=== PATIENT | female | born 1990 | race Caucasian/White ===

== ENCOUNTER 2022-06-13 18:24 | Observation (INO) | payer BC ==
[2022-06-13] MEDS ORDERED: SODIUM CHLORIDE 0.9% 1,000 ML IV STA (19:40)
--- NOTE | 2022-06-13 19:40 | ED ---
General Adult HPI - General Stated complaint: Racing Heart Beat Source: patient, family, RN notes reviewed, old records reviewed - History of Present Illness Initial comments: This is a well appearing 32 year old female that presents ambulatory with compl aints of chest pain while making dinner arouind 1730 tonight. States felt like she was going to pass out. Checked her heart rate and was 180. States has been feeling palpitations and now both arms are tingling. Chest pain comes and goes 9/10 and can't describe the pain. No medical history. Nonsmoker. Patient denies any medical history. No medicines on a daily basis. She did see Dr. Lubin for similar discomfort in the past approximately 10 years ago and had an EKG which he told her was normal. She states that she has not seen Dr. Lubin since. She does not have a primary care doctor. -: hour(s) Location: chest Quality: constant Consistency: constant Improves with: none Associated Symptoms: other (palpitations, bilateral arm numbness and near syncope) - Related Data Home Medications Medication Instructions Recorded Confirmed No Known Home Medications 06/13/22 06/13/22 Allergies Allergy/AdvReac Type Severity Reaction Status Date / Time No Known Allergies Allergy Verified 06/13/22 22:33 Review of Systems ROS Statement: Those systems with pertinent positive or pertinent negative responses have been documented in the HPI. ROS Other: All systems not noted in ROS Statement are negative. General Exam General appearance: alert, in no apparent distress Head exam: Present: atraumatic, normocephalic Eye exam: Present: normal appearance. Absent: scleral icterus, conjunctival injection, periorbital swelling, periorbital tenderness ENT exam: Present: mucous membranes moist Respiratory exam: Present: normal lung sounds bilaterally. Absent: respiratory distress, accessory muscle use Cardiovascular Exam: Present: tachycardia Extremities exam: Present: normal capillary refill. Absent: pedal edema Neurological exam: Present: alert, oriented X3, normal gait Psychiatric exam: Present: normal affect, normal mood Skin exam: Present: warm, dry, normal color. Absent: cyanosis, diaphoretic, petechiae, pallor Course Vital Signs 06/13/22 06/13/22 06/13/22 19:34 19:43 19:45 Temperature 98.3 F Pulse Rate 109 H 97 101 H Respiratory 20 Rate Blood Pressure 151/85 O2 Sat by Pulse 99 98 100 Oximetry 06/13/22 06/13/22 06/13/22 20:00 20:08 20:15 Temperature Pulse Rate 99 108 H 91 Respiratory 18 Rate Blood Pressure 133/90 132/90 133/90 O2 Sat by Pulse 99 99 100 Oximetry 06/13/22 06/13/22 06/13/22 20:30 20:45 21:00 Temperature Pulse Rate 99 100 101 H Respiratory Rate Blood Pressure 133/90 133/90 133/90 O2 Sat by Pulse 98 92 L 99 Oximetry 06/13/22 06/13/22 06/13/22 21:15 22:45 22:49 Temperature Pulse Rate 99 108 H 112 H Respiratory 18 Rate Blood Pressure 133/90 122/73 132/77 O2 Sat by Pulse 99 97 98 Oximetry 06/13/22 06/14/22 06/14/22 23:00 00:00 01:00 Temperature Pulse Rate 100 90 85 Respiratory 18 18 Rate Blood Pressure 132/77 113/64 117/82 O2 Sat by Pulse 96 97 Oximetry 06/14/22 06/14/22 02:00 03:00 Temperature Pulse Rate 77 92 Respiratory Rate Blood Pressure 117/66 124/61 O2 Sat by Pulse 98 96 Oximetry EKG Findings - EKG Comments: EKG Findings:: Repeat EKG was performed showing ventricular rate of 103, NH interval 0.96, QRS 0.85, QTC 0.410, normal axis - EKG Results: EKG: sinus rhythm EKG shows: tachycardia (Sinus tach 111, NH interval 0.130, QRS 0.90, QTC 0.384, normal axis, no old EKG to compare) Medical Decision Making - Medical Decision Making Patient was given aspirin and 2 L of IV fluids. Remained tachycardic while in the emergency room. Hemodynamically stable. CBC and electrolytes are unremarkable. Troponin is negative. TSH and free T4 within normal limits. D-dimer negative. EKG shows sinus rhythm, no concerning abnormality. Chest x-ray interpreted by me shows no evidence of focal consolidation. Radiologist impression no acute cardiopulmonary disease or process. Due to patient's lack of primary care, chest pain, near-syncope and persistent tachycardia she will be admitted to observation unit with cardiology consult. She is agreeable to this plan of care. Case discussed with Dr. Coronel Was pt. sent in by a medical professional or institution (Dr., PA, SERVICE ADMINISTRATOR, urgent care, hospital, or penitentiary...) When possible be specific @ -No Did you speak to anyone other than the patient for history (EMS, parent, family, police, friend...)? What history was obtained from this source @ -No Did you review nursing and triage notes (agree or disagree)? Why? @ -I reviewed and agree with nursing and triage notes Were old charts reviewed (outside hosp., previous admission, EMS record, old EKG, old radiological studies, urgent care reports/EKG's, penitentiary records)? Report findings @ -No old charts were reviewed Differential Diagnosis (chest pain, altered mental status, abdominal pain women, abdominal pain men, vaginal bleeding, weakness, fever, dyspnea, syncope, headache, dizziness, GI bleed, back pain, seizure, CVA, palpatations, mental health, musculoskeletal)? @ -Differential Chest Pain: Stable Angina, Unstable Angina, STEMI, NSTEMI Aortic Dissection, Pneumothorax, Musculoskeletal, Esophageal Spasm GERD, Cholecystitis, Pancreatitis, Zoster, this is not meant to be an all-inclusive list. EKG interpreted by me (3pts min.). @ -As above X-rays interpreted by me (1pt min.). @ - above CT interpreted by me (1pt min.). @ -None done U/S interpreted by me (1pt. min.). @ -None done What testing was considered but not performed or refused? (CT, X-rays, U/S, labs)? Why? @ -None What meds were considered but not given or refused? Why? @ -None Did you discuss the management of the patient with other professionals (professionals i.e. , PA, SERVICE ADMINISTRATOR, lab, RT, psych nurse, social and human services assistant, pulmonary physician, teacher, head correction officer, case operator)? Give summary @ -No Was smoking cessation discussed for >3mins.? @ -No Was critical care preformed (if so, how long)? @ -No Were there social determinants of health that impacted care today? How? (Homelessness, low income, unemployed, alcoholism, drug addiction, transportation, low edu. Level, literacy, decrease access to med. care, longterm, rehab)? @ -No primary care Was there de-escalation of care discussed even if they declined (Discuss DNR or withdrawal of care, Hospice)? DNR status @ -No What co-morbidities impacted this encounter? (DM, HTN, Smoking, COPD, CAD, Cancer, CVA, ARF, Chemo, Hep., AIDS, mental health diagnosis, sleep apnea, morbid obesity)? @ -None Was patient admitted / discharged? Hospital course, mention meds given and r oute, prescriptions, significant lab abnormalities, going to OR and other pertinent info. @ -Admitted Undiagnosed new problem with uncertain prognosis? @ -No Drug Therapy requiring intensive monitoring for toxicity (Heparin, Nitro, Insulin, Cardizem)? @ -No Were any procedures done? @ -No Diagnosis/symptom? @ -Chest pain, persistent tachycardia, near syncope Acute, or Chronic, or Acute on Chronic? @ -Acute Uncomplicated (without systemic symptoms) or Complicated (systemic symptoms)? @ -Complicated Side effects of treatment? @ -No Exacerbation, Progression, or Severe Exacerbation? @ -No Poses a threat to life or bodily function? How? (Chest pain, USA, DC, pneumonia, PE, COPD, DKA, ARF, appy, cholecystitis, CVA, Diverticulitis, Homicidal, Suicidal, threat to staff... and all critical care pts) @ -No - Lab Data Result diagrams: 06/13/22 19:55 06/13/22 19:55 Lab Results 06/13/22 06/13/22 06/13/22 Range/Units 19:55 19:55 19:55 WBC 9.4 (3.8-10.6) k/uL RBC 4.59 (3.80-5.40) m/uL Hgb 14.2 (11.4-16.0) gm/dL Hct 42.1 (34.0-46.0) % MCV 91.6 (80.0-100.0) fL MCH 31.0 (25.0-35.0) pg MCHC 33.8 (31.0-37.0) g/dL RDW 13.1 (11.5-15.5) % Plt Count 235 (150-450) k/uL MPV 9.3 Neutrophils % 69 % Lymphocytes % 18 % Monocytes % 8 % Eosinophils % 2 % Basophils % 1 % Neutrophils # 6.5 (1.3-7.7) k/uL Lymphocytes # 1.7 (1.0-4.8) k/uL Monocytes # 0.7 (0-1.0) k/uL Eosinophils # 0.2 (0-0.7) k/uL Basophils # 0.1 (0-0.2) k/uL PT 10.6 (9.0-12.0) sec INR 1.0 (<1.2) APTT 23.4 (22.0-30.0) sec D-Dimer <0.17 (<0.60) mg/L FEU Sodium 136 L (137-145) mmol/L Potassium 3.6 (3.5-5.1) mmol/L Chloride 101 (98-107) mmol/L Carbon Dioxide 28 (22-30) mmol/L Anion Gap 7 mmol/L BUN 11 (7-17) mg/dL Creatinine 0.82 (0.52-1.04) mg/dL Est GFR (CKD-EPI)AfAm >90 (>60 ml/min/1.73 sqM) Est GFR (CKD-EPI)NonAf >90 (>60 ml/min/1.73 sqM) Glucose 128 H (74-99) mg/dL Calcium 9.0 (8.4-10.2) mg/dL Magnesium 1.9 (1.6-2.3) mg/dL Total Bilirubin 0.3 (0.2-1.3) mg/dL AST 23 (14-36) U/L ALT 20 (4-34) U/L Alkaline Phosphatase 42 (38-126) U/L Troponin I (0.000-0.034) ng/mL Total Protein 7.3 (6.3-8.2) g/dL Albumin 4.5 (3.5-5.0) g/dL TSH (0.465-4.680) mIU/L Free T4 (0.78-2.19) ng/dL 06/13/22 06/13/22 Range/Units 19:55 19:55 WBC (3.8-10.6) k/uL RBC (3.80-5.40) m/uL Hgb (11.4-16.0) gm/dL Hct (34.0-46.0) % MCV (80.0-100.0) fL MCH (25.0-35.0) pg MCHC (31.0-37.0) g/dL RDW (11.5-15.5) % Plt Count (150-450) k/uL MPV Neutrophils % % Lymphocytes % % Monocytes % % Eosinophils % % Basophils % % Neutrophils # (1.3-7.7) k/uL Lymphocytes # (1.0-4.8) k/uL Monocytes # (0-1.0) k/uL Eosinophils # (0-0.7) k/uL Basophils # (0-0.2) k/uL PT (9.0-12.0) sec INR (<1.2) APTT (22.0-30.0) sec D-Dimer (<0.60) mg/L FEU Sodium (137-145) mmol/L Potassium (3.5-5.1) mmol/L Chloride (98-107) mmol/L Carbon Dioxide (22-30) mmol/L Anion Gap mmol/L BUN (7-17) mg/dL Creatinine (0.52-1.04) mg/dL Est GFR (CKD-EPI)AfAm (>60 ml/min/1.73 sqM) Est GFR (CKD-EPI)NonAf (>60 ml/min/1.73 sqM) Glucose (74-99) mg/dL Calcium (8.4-10.2) mg/dL Magnesium (1.6-2.3) mg/dL Total Bilirubin (0.2-1.3) mg/dL AST (14-36) U/L ALT (4-34) U/L Alkaline Phosphatase (38-126) U/L Troponin I <0.012 (0.000-0.034) ng/mL Total Protein (6.3-8.2) g/dL Albumin (3.5-5.0) g/dL TSH 3.210 (0.465-4.680) mIU/L Free T4 1.15 (0.78-2.19) ng/dL Disposition Clinical Impression: Palpitations, Tachycardia, Near syncope, Chest pain Disposition: ADMITTED IP TO THIS [facility] Condition: Good Decision Date: 06/13/22 Decision Time: 23:04
[2022-06-13 20:20] LABS: Basophils # (A) 0.1 k/uL (0-0.2); Basophils % (A) 1 %; Eosinophils # (A) 0.2 k/uL (0-0.7); Eosinophils % (A) 2 %; HCT 42.1 % (34.0-46.0); HGB 14.2 gm/dL (11.4-16.0); Lymphocytes # (A) 1.7 k/uL (1.0-4.8); Lymphocytes % (A) 18 %; MCHC 33.8 g/dL (31.0-37.0); MCV 91.6 fL (80.0-100.0); Mean Platelet Volume 9.3; Monocytes # (A) 0.7 k/uL (0-1.0); Monocytes % (A) 8 %; Neutrophils # (A) 6.5 k/uL (1.3-7.7); Neutrophils % (A) 69 %; Platelet Count 235 k/uL (150-450); RBC 4.59 m/uL (3.80-5.40); RDW 13.1 % (11.5-15.5); WBC 9.4 k/uL (3.8-10.6)
[2022-06-13 20:31] LABS: ALT 20 U/L (4-34); AST 23 U/L (14-36); African American GFR (CKD) >90 (>60 ml/min/1.73 sqM); Albumin 4.5 g/dL (3.5-5.0); Alkaline Phosphatase 42 U/L (38-126); Anion Gap 7 mmol/L; Blood Urea Nitrogen 11 mg/dL (7-17); Carbon Dioxide 28 mmol/L (22-30); Chloride 101 mmol/L (98-107); Glucose 128 mg/dL (74-99); Magnesium 1.9 mg/dL (1.6-2.3); Non-African American GFR(CKD) >90 (>60 ml/min/1.73 sqM); Potassium 3.6 mmol/L (3.5-5.1); Sodium 136 mmol/L (137-145); Total Bilirubin 0.3 mg/dL (0.2-1.3); Total Protein 7.3 g/dL (6.3-8.2)
[2022-06-13 20:34] LABS: Partial Thromboplastin Time 23.4 sec (22.0-30.0); Prothrombin Time 10.6 sec (9.0-12.0)
--- NOTE | 2022-06-13 20:38 | XR ---
EXAMINATION TYPE: XR chest 2V DATE OF EXAM: 06/13/2022 8:23 PM COMPARISON: None TECHNIQUE: XR chest 2V Frontal and lateral views of the chest. CLINICAL INDICATION:Female, 32 years old with history of Chest Pain; FINDINGS: Lungs/Pleura: There is no evidence of pleural effusion, focal consolidation, or pneumothorax. Pulmonary vascularity: Unremarkable. Heart/mediastinum: Cardiomediastinal silhouette is unremarkable. Musculoskeletal: No acute osseous pathology. IMPRESSION: No acute cardiopulmonary disease/process.
[2022-06-13] MEDS ORDERED: SODIUM CHLORIDE 0.9% 1,000 ML IV ONE (21:54)
[2022-06-13] MEDS ORDERED: ASPIRIN 81 MG PO STA (22:58)
[2022-06-13] MEDS ORDERED: IBUPROFEN 400 MG TAB PO PRN (23:02)
[2022-06-13] MEDS ORDERED: NALOXONE 0.4 MG/ML 1 ML VIAL IV PRN (23:02)
[2022-06-13] MEDS ORDERED: ACETAMINOPHEN TAB 325 MG TAB PO PRN (23:02)
[2022-06-14 00:28] LABS: T4, Free (Free Thyroxine) 1.15 ng/dL (0.78-2.19)
--- NOTE | 2022-06-14 08:03 | P.CRDCN ---
History of Present Illness Consult date: 06/14/22 Chief complaint: Chest pain History of present illness: The patient is a pleasant 32-year-old female patient was no significant past medical history and no history of smoking presented to the emergency room complaining of chest discomfort and palpitation beach she was in her usual state of health yesterday evening she was making dinner and she was trying to reach into sensing her kitchen suddenly she started experiencing discomfort in the est. She described the discomfort as a sharp kind of discomfort in the middle of the chest with no radiation to the arms or neck or shoulders or back and it was associated with shortness of breath as well as it was associated with palpitations/heart racing. She checked her pulse and and her pulse was elevated about 180 bpm according to her and her . She felt dizzy and lightheaded and she felt that she was about to lose her consciousness but she did not have syncope or loss of consciousness. She decided to come to the emergency department where she underwent a workup including EKG showing sinus rhythm with sinus tachycardia and diffuse nonspecific ST and T wave abnormalities. Also she underwent troponin with one set only and that came in to be unremarkable. The chest x-ray did not show any acute abnormalities. The patient does not have any history of diabetes or hypertension or dyslipidemia and she does not smoke but apparently she was drinking alcohol with a bit more than normal where she stated that she drinks about 5 drinks of vodka the night before. Currently she is chest pain-free but she still have mild palpitations/heart racing. Her resting heart rate continues to be around 110 beats per minutes. TSH and free T4 checked and came in to be unremarkable. On examination she does have regular rhythm with mild tachycardia with a systolic murmur and clear breathing sounds bilaterally and no carotid bruit or lower extent is edema noted Assessment Atypical chest discomfort Sinus tachycardia Heart racing Plan Rule out acute coronary event. We will follow-up on the serial cardiac enzymes Rule out pulmonary embolism which is quite unlikely but just giving the tachycardia going to obtain d-dimer Check alcohol level. The tachycardia could be related to alcohol withdrawal as well Obtain an echocardiogram was Doppler Further recommendation to follow Past Medical History Past Medical History: No Reported History History of Any Multi-Drug Resistant Organisms: None Reported Past Surgical History: No Surgical Hx Reported Past Psychological History: No Psychological Hx Reported Smoking Status: Never smoker Past Alcohol Use History: Occasional Past Drug Use History: None Reported Medications and Allergies Home Medications Medication Instructions Recorded Confirmed Type No Known Home Medications 06/13/22 06/13/22 History Allergies Allergy/AdvReac Type Severity Reaction Status Date / Time No Known Allergies Allergy Verified 06/13/22 22:33 Physical Exam Vitals: Vital Signs Temp Pulse Resp BP Pulse Ox 06/14/22 05:00 77 110/64 97 06/14/22 04:00 66 123/73 97 06/14/22 03:00 92 124/61 96 06/14/22 02:00 77 117/66 98 06/14/22 01:00 85 18 117/82 06/14/22 00:00 90 18 113/64 97 06/13/22 23:00 100 132/77 96 06/13/22 22:49 112 H 132/77 98 06/13/22 22:45 108 H 18 122/73 97 06/13/22 21:15 99 133/90 99 06/13/22 21:00 101 H 133/90 99 06/13/22 20:45 100 133/90 92 L 06/13/22 20:30 99 133/90 98 06/13/22 20:15 91 133/90 100 06/13/22 20:08 108 H 18 132/90 99 06/13/22 20:00 99 133/90 99 06/13/22 19:45 101 H 100 06/13/22 19:43 97 98 06/13/22 19:34 98.3 F 109 H 20 151/85 99 Intake and Output 06/13/22 06/14/22 06/14/22 22:59 06:59 14:59 Other: Weight 58.967 kg Results 06/13/22 19:55 06/13/22 19:55 Cardiac Enzymes 06/13/22 06/13/22 Range/Units 19:55 19:55 AST 23 (14-36) U/L Troponin I <0.012 (0.000-0.034) ng/mL Coagulation 06/13/22 Range/Units 19:55 PT 10.6 (9.0-12.0) sec APTT 23.4 (22.0-30.0) sec CBC 06/13/22 Range/Units 19:55 WBC 9.4 (3.8-10.6) k/uL RBC 4.59 (3.80-5.40) m/uL Hgb 14.2 (11.4-16.0) gm/dL Hct 42.1 (34.0-46.0) % Plt Count 235 (150-450) k/uL Comprehensive Metabolic Panel 06/13/22 Range/Units 19:55 Sodium 136 L (137-145) mmol/L Potassium 3.6 (3.5-5.1) mmol/L Chloride 101 (98-107) mmol/L Carbon Dioxide 28 (22-30) mmol/L BUN 11 (7-17) mg/dL Creatinine 0.82 (0.52-1.04) mg/dL Glucose 128 H (74-99) mg/dL Calcium 9.0 (8.4-10.2) mg/dL AST 23 (14-36) U/L ALT 20 (4-34) U/L Alkaline Phosphatase 42 (38-126) U/L Total Protein 7.3 (6.3-8.2) g/dL Albumin 4.5 (3.5-5.0) g/dL Current Medications Generic Name Dose Route Start Last Admin Trade Name Freq PRN Reason Stop Dose Admin Acetaminophen 650 mg 06/13/22 23:02 Acetaminophen Tab 325 Mg Tab PO Q6HR PRN Mild Pain or Fever > 100.5 Ibuprofen 400 mg 06/13/22 23:02 Ibuprofen 400 Mg Tab PO Q6HR PRN Mild Pain or Fever > 100.5 Naloxone HCl 0.2 mg 06/13/22 23:02 Naloxone 0.4 Mg/Ml 1 Ml Vial IV Q2M PRN Opioid Reversal Intake and Output 06/13/22 06/14/22 06/14/22 22:59 06:59 14:59 Other: Weight 58.967 kg 06/13/22 19:55 06/13/22 19:55
[2022-06-14 08:20] VITALS: RESP 16
--- NOTE | 2022-06-14 10:22 | CA ---
Transthoracic Echo Report Name: Francy Linder Age: 32 Gender: F : 1990 Exam Date: 06/14/2022 08:16 Exam Location: [place] [facility] Ht (in): 62 Wt (lb): 133 Ordering Physician: Francisco Coffey Attending/Referring Phys: Computer Systems Integrator Lana Winkler RDCS Procedure CPT: Indications: Persistent tachycardia, palpitations, near syncope Cardiac Hx: Technical Quality: Excellent Contrast 1: Total Dose (mL): Contrast 2: Total Dose (mL): MEASUREMENTS (Male / Female) Normal Values 2D ECHO LV Diastolic Diameter PLAX 4.2 cm 4.2 - 5.9 / 3.9 - 5.3 cm LV Systolic Diameter PLAX 2.9 cm IVS Diastolic Thickness 0.8 cm 0.6 - 1.0 / 0.6 - 0.9 cm LVPW Diastolic Thickness 0.8 cm 0.6 - 1.0 / 0.6 - 0.9 cm LV Relative Wall Thickness 0.4 RV Internal Dim ED PLAX 3.1 cm LA Systolic Diameter LX 3.3 cm 3.0 - 4.0 / 2.7 - 3.8 cm LV Diastolic Volume MOD BP 86.1 cm??? 67 - 155 / 56 - 104 cm??? LV Systolic Volume MOD BP 25.8 cm??? 22 - 58 / 19 - 49 cm??? LV Ejection Fraction MOD BP 70.0 % >= 55 % LV Diastolic Volume MOD 4C 84.3 cm??? LV Systolic Volume MOD 4C 24.7 cm??? LV Ejection Fraction MOD 4C 70.7 % LV Diastolic Length 4C 7.4 cm LV Systolic Length 4C 5.5 cm LV Diastolic Volume MOD 2C 77.0 cm??? LV Systolic Volume MOD 2C 27.0 cm??? LV Ejection Fraction MOD 2C 64.9 % LV Diastolic Length 2C 6.4 cm LV Systolic Length 2C 5.4 cm LA Volume 41.8 cm??? 18 - 58 / 22 - 52 cm??? M-MODE Aortic Root Diameter MM 2.3 cm MV E Point Septal Separation 0.1 cm AV Cusp Separation MM 1.7 cm DOPPLER AV Peak Velocity 169.8 cm/s AV Peak Gradient 11.5 mmHg MV Area PHT 4.4 cm??? Mitral E Point Velocity 110.4 cm/s Mitral A Point Velocity 84.0 cm/s Mitral E to A Ratio 1.3 MV Deceleration Time 173.1 ms MV E' Velocity 13.3 cm/s Mitral E to MV E' Ratio 8.3 TR Peak Velocity 232.8 cm/s TR Peak Gradient 21.7 mmHg Right Ventricular Systolic Press 26.7 mmHg FINDINGS Left Ventricle Left ventricular ejection fraction is estimated at 60-65 %. Normal Left ventricular size, wall thickness, systolic function with no obvious regional wall motion abnormalities. Normal Left ventricular diastolic filling pattern. Right Ventricle Normal right ventricular size and function. Right ventricular systolic pressure within normal limits. Right Atrium Normal right atrial size. Left Atrium Normal left atrial size. Mitral Valve Structurally normal mitral valve. Trace to mild mitral regurgitation. Aortic Valve Trileaflet aortic valve. No aortic valve stenosis or regurgitation. Tricuspid Valve Structurally normal tricuspid valve. Trace to mild tricuspid regurgitation. Pulmonic Valve Structurally normal pulmonic valve. Mild pulmonic regurgitation. Pericardium Normal pericardium. No pericardial effusion. Aorta Normal size aortic root and proximal ascending aorta. CONCLUSIONS Normal biventricular systolic function Normal intracardiac valves No pericardial effusion Previewed by: Dr. Misael Delgado MD (Electronically Signed) Final Date: 14 June 2022 10:20
--- NOTE | 2022-06-14 12:49 | CA ---
Exercise Stress Test Report Name: Francy Linder Exam Date: 06/14/2022 12:01 Exam Location: [place] Stress Ht (in): 62 Wt (lb): 130 BSA: 1.59 Ordering Phys: Misael Delgado MD Referring Phys: MISAEL DELGADO,, Technologist: Lana Winkler RDCS Age: 32 Gender: F : 1990 Procedure CPT: Indications: palpitations ICD-10 Codes: Patient History: cp, boby, palpitations Medications: Meds past 24 hrs: Pretest Chest Pain: STRESS TEST Cruz Protocol Exercise Duration (min:sec): 08:[address] Depressions (mm): Angina Score: Vaz Score: Resting HR (bpm): 120 Peak HR (bpm): 182 Resting BP (mmHg): 139 / 88 Peak BP (mmHg): 185 / 82 MPHR: 186 Target HR: 158 % MPHR: 98 METS: 10.3 Total Dose: Peak Dose: Atropine: Double Product: 99424 BP Response: Stress Termination: Dyspnea Stress Symptoms: Stress Summary: ECG ANALYSIS Resting ECG: Stress ECG: CONCLUSIONS Excellent exercise tolerance Normal EKG in response to exercise Dr. Misael Delgado MD (Electronically Signed) Final Date: 14 June 2022 12:48
[2022-06-14 16:19] VITALS: BP 110/64; PULSE 85; TEMP 98.3
== END 2022-06-14 16:45 | disposition home or self-care (01) ==
LOC: EC 18:24 → 6NMEDSUR 23:04
PROVIDERS: ADMIT Hospitalist; ATTEND Hospitalist
DX: R07.89 Other chest pain (principal); R00.2 Palpitations; R06.02 Shortness of breath; R42 Dizziness and giddiness; R00.0 Tachycardia, unspecified
CPT/HCPCS: 99285; 36415; 94760; 93005; 93017; 93306; 85379 ×2; 84439; 80053; 84443; 83735; 84484 ×2; 85025; 85610; 85730; 71046; G0378

== ENCOUNTER → 2022-12-10 | Outpatient (CLI) | payer BC ==
[2022-12-10 13:38] LABS: Basophils % (A) 0 %; Eosinophils # (A) 0.2 k/uL (0-0.7); Eosinophils % (A) 3 %; HCT 41.4 % (34.0-46.0); HGB 13.5 gm/dL (11.4-16.0); Lymphocytes % (A) 37 %; MCH 30.2 pg (25.0-35.0); MCHC 32.7 g/dL (31.0-37.0); MCV 92.3 fL (80.0-100.0); Mean Platelet Volume 8.7; Monocytes # (A) 0.5 k/uL (0-1.0); Monocytes % (A) 9 %; Neutrophils # (A) 2.6 k/uL (1.3-7.7); Neutrophils % (A) 47 %; Platelet Count 251 k/uL (150-450); RBC 4.48 m/uL (3.80-5.40); RDW 13.6 % (11.5-15.5); WBC 5.5 k/uL (3.8-10.6)
== END | disposition home or self-care (01) ==
LOC: LABWHC1 12:59
PROVIDERS: ATTEND Obstetrics & Gynecology
DX: Z01.812 Encounter for preprocedural laboratory examination (principal)
CPT/HCPCS: 36415; 85025

== ENCOUNTER 2022-12-12 06:05 | Day surgery (SDC) | payer BC ==
[2022-12-10 15:00] VITALS: BMI 24.3
--- NOTE | 2022-12-11 12:37 | P.HPOB ---
History of Present Illness H&P Date: 12/11/22 Chief Complaint: High-grade ectocervical dysplasia. This patient is a pleasant 32-year-old 3 para 2 female who presents for LEEP excision of the ectocervix secondary to high-grade cervical dysplasia. Patient's history is such that she had a colposcopy performed on September 24. The endocervical curettings were negative however her biopsy at 12:00 showed CHECO-2. I discussed options with the patient she's elected to proceed with LEEP excision of this area. Past Medical History Past Medical History: No Reported History Additional Past Medical History / Comment(s): "Inapproproiate sinus tachycardia". Hx kidney stones without surgery. History of Any Multi-Drug Resistant Organisms: None Reported Past Surgical History: No Surgical Hx Reported Past Anesthesia/Blood Transfusion Reactions: No Reported Reaction, Motion Sickness Past Psychological History: No Psychological Hx Reported Smoking Status: Never smoker Past Alcohol Use History: None Reported, Occasional Past Drug Use History: None Reported - Past Family History Sister(s) Family Medical History: Cancer Additional Family Medical History / Comment(s): Cervical cancer. Medications and Allergies Home Medications Medication Instructions Recorded Confirmed Type Ibuprofen [Motrin] 400 mg PO ONCE 12/10/22 12/10/22 History Allergies Allergy/AdvReac Type Severity Reaction Status Date / Time No Known Allergies Allergy Verified 12/10/22 14:51 Exam - OBG Physical Exam Abdomen: bowel sounds normal, no diffuse tenderness, no bruit present, no guarding noted, no hepatomegaly, no splenomegaly, no mass Vulva: both: normal Vagina: normal moisture, no discharge Cervix: no lesion, no discharge Uterus: normal size, normal contour Results Cervical biopsy on September 24 showed CHECO-2/high-grade dysplasia at 12:00 Assessment and Plan Assessment: This is a pleasant 32-year-old 3 para 2 female with high-grade cervical dysplasia of the ectocervix. Plan is colposcopy with LEEP excision of the ectocervix and endocervix. The patient and I have discussed the surgery and risks concerning risks of infection, bleeding, possible cervical incompetence in future pregnancies. All the patient's questions are answered and a written consent is obtained. (1) High grade squamous intraepithelial cervical dysplasia Status: Acute Code(s): R87.613 - HIGH GRADE INTREPITH LESION CYTO SMR CRVX (HGSIL) SNOMED Code(s): 304144519
[~2022-12-12 06:05] MED LIST: DEXAMETHASONE SOD PHOSPHATE 4 MG/ML 1 ML VIAL IV ONE; HYDROmorphone 0.5 MG/0.5 ML SYRINGE IVP PRN; LACTATED RINGERS 1,000 ML IV SCH; ONDANSETRON 4 MG/2 ML VIAL IVP ONE; Pre Op ABX Message 1 EACH MISC MISCELLANE ONE
[2022-12-12] MEDS ORDERED: LACTATED RINGERS 1,000 ML IV ONE (06:47)
[2022-12-12] MEDS ORDERED: SCOPOLAMINE 1 MG/72 HR PATCH TRANSDERM ONE (06:48)
[2022-12-12] MEDS ORDERED: fentaNYL (PF) 50 MCG/ML 2 ML AMP ONE (07:19)
[2022-12-12] MEDS ORDERED: MIDAZOLAM 2 MG/2 ML VIAL ONE (07:19)
[2022-12-12] MEDS ORDERED: LIDOCAINE 2% INJ 20 MG/ML (2 ML VIAL) ONE (07:19)
[2022-12-12] MEDS ORDERED: PROPOFOL 10 MG/ML 20 ML VIAL IV ONE (07:19)
[2022-12-12] MEDS ORDERED: KETOROLAC 15 MG/ML 1 ML VIAL ONE (07:19)
[2022-12-12] MEDS ORDERED: IODINE/POTASSIUM IODIDE 14 ML BOTTLE TOPICAL ONE (07:24)
[2022-12-12] MEDS ORDERED: FERRIC SUBSULFATE (MONSELS) JAR TOPICAL ONE (07:24)
--- NOTE | 2022-12-12 07:57 | P.OP ---
Date of Procedure: 12/12/22 Preoperative Diagnosis: High-grade ectocervical dysplasia Postoperative Diagnosis: Same Procedure(s) Performed: Colposcopy with LEEP excision of the ectocervix and endocervix Anesthesia: other (LMA) Surgeon: Ravi Culver Estimated Blood Loss (ml): 20 Urine output (ml): 20 Pathology: other (Ectocervix and endocervix) Condition: stable Disposition: PACU Indications for Procedure: Please see dictated H&P for intimate details of this patient's admission. Brief summary this is a pleasant 32-year-old multiparous patient who is admitted for treatment of severe ectocervical dysplasia as demarcated on colposcopy in the office. Patient understands this surgery and risks including risks of inspection, bleeding, possible cervical incompetence if she did have future pregnancies. All the patient's questions are answered and a written consent is obtained. Operative Findings: This patient had acetowhite changes at 12:00 as marked and office Description of Procedure: This patient is taken to the operating room where she is laid in the supine position. She subsequent undergoes general anesthesia without incident. With an adequate level of anesthesia she placed in dorsal lithotomy position. She has a vaginal perineal prep and drape. The bladder is drained for 20 mL of clear urine. A laser speculum was placed into the vagina and the cervix is visualized with the colposcope. Lugols solution is applied and the area of abnormality is visualized. Using the large LEEP loop at a 60/70 cutting/cautery setting one pass is made of the ectocervix and the transformation zone was removed. A second pass is made with a smaller LEEP loop of the endocervix. With this done cauterization is done of the ectocervical margin and the endocervical bed. Excellent hemostasis is noted. Monsel solution is applied for added hemostasis. This point the procedure is ended. All counts are correct 3. There are no complications. Patient is awakened from anesthesia and taken recovery room satisfactory condition.
[2022-12-12 15:55] VITALS: BP 111/71; PULSE 55; RESP 16; TEMP 97.2
== END 2022-12-12 09:22 | disposition home or self-care (01) ==
LOC: OR 06:05
PROVIDERS: ATTEND Obstetrics & Gynecology
DX: N87.1 Moderate cervical dysplasia (principal); Z87.442 Personal history of urinary calculi; Z79.899 Other long term (current) drug therapy
CPT/HCPCS: 81025; 88305; 88307; 57460; J2250; J1100; J2405; J3010; J1885; J2704; J2001

== ENCOUNTER 2023-08-04 11:56 | Emergency (ER) | payer BC ==
[2023-08-04 12:23] LABS: Basophils # (A) 0.1 k/uL (0-0.2); Basophils % (A) 1 %; Eosinophils # (A) 0.1 k/uL (0-0.7); Eosinophils % (A) 2 %; HCT 45.6 % (34.0-46.0); HGB 14.2 gm/dL (11.4-16.0); Lymphocytes % (A) 38 %; MCH 29.3 pg (25.0-35.0); MCHC 31.2 g/dL (31.0-37.0); Mean Platelet Volume 8.9; Monocytes # (A) 0.5 k/uL (0-1.0); Monocytes % (A) 6 %; Neutrophils % (A) 51 %; Platelet Count 273 k/uL (150-450); RBC 4.86 m/uL (3.80-5.40); RDW 12.5 % (11.5-15.5); WBC 7.9 k/uL (3.8-10.6)
--- NOTE | 2023-08-04 12:32 | ED ---
General Adult HPI - General Chief complaint: Arrhythmia/Palpitations Stated complaint: Increased heart rate, low temp Time Seen by Provider: 08/04/23 12:00 Source: patient, RN notes reviewed, old records reviewed Mode of arrival: ambulatory Limitations: no limitations - History of Present Illness Initial comments: This is a 33-year-old female who has a past medical history significant for inappropriate sinus tachycardia. Patient states today she started feeling her heart racing and she is not sure how fast the But she got to the point where she was not feeling well so she took her metoprolol for the first time. Patient states she is no longer having the palpitations. Patient denies any chest pain but some chest tightness. Patient denies any difficulty breathing or shortness of breath. Patient has any thyroid issues. Patient is any change in what she is taking orally or medications. - Related Data Home Medications Medication Instructions Recorded Confirmed Ibuprofen [Motrin] 400 mg PO ONCE 12/10/22 12/10/22 Previous Rx's Medication Instructions Recorded Ibuprofen [Motrin] 600 mg PO Q6HR PRN #40 tab 12/12/22 Allergies Allergy/AdvReac Type Severity Reaction Status Date / Time No Known Allergies Allergy Verified 08/04/23 12:01 Review of Systems ROS Statement: Those systems with pertinent positive or pertinent negative responses have been documented in the HPI. ROS Other: All systems not noted in ROS Statement are negative. Past Medical History Past Medical History: No Reported History Additional Past Medical History / Comment(s): kidney stones without surgery, Tachycardia History of Any Multi-Drug Resistant Organisms: None Reported Past Surgical History: No Surgical Hx Reported Past Psychological History: No Psychological Hx Reported Smoking Status: Never smoker Past Alcohol Use History: Occasional Past Drug Use History: None Reported General Exam - General Exam Comments Initial Comments: GENERAL: Patient is well-developed and well-nourished. Patient is nontoxic and well- hydrated and is in mild distress. ENT: Neck is soft and supple. No significant lymphadenopathy is noted. Oropharynx is clear. Moist mucous membranes. Neck has full range of motion without eliciting any pain. EYES: The sclera were anicteric and conjunctiva were pink and moist. Extraocular movements were intact and pupils were equal round and reactive to light. Eyelids were unremarkable. PULMONARY: Unlabored respirations. Good breath sounds bilaterally. No audible rales r honchi or wheezing was noted. CARDIOVASCULAR: There is a regular rate and rhythm without any murmurs gallops or rubs. ABDOMEN: Soft and nontender with normal bowel sounds. SKIN: Skin is clear with no lesions or rashes and otherwise unremarkable. NEUROLOGIC: Patient is alert and oriented x3. Cranial nerves II through XII are grossly intact. Motor and sensory are also intact. Normal speech, volume and content. Symmetrical smile. MUSCULOSKELETAL: Normal extremities with adequate strength and full range of motion. LYMPHATICS: No significant lymphadenopathy is noted PSYCHIATRIC: Normal psychiatric evaluation. Limitations: no limitations Course Vital Signs 08/04/23 11:59 Temperature 97.6 F Pulse Rate 115 H Respiratory 20 Rate Blood Pressure 151/89 O2 Sat by Pulse 99 Oximetry Medical Decision Making - Medical Decision Making EKG is interpreted by myself but EKG shows a sinus rhythm at [address] interval is 115 QRS is 88 QT interval 345 QTc is 397. Patient's EKG shows no ST segment elevation or depression. Was pt. sent in by a medical professional or institution (, PA, HEATER OPERATOR, urgent care, hospital, or alf...) When possible be specific @ -No Did you speak to anyone other than the patient for history (EMS, parent, family, police, friend...)? What history was obtained from this source @ -No Did you review nursing and triage notes (agree or disagree)? Why? @ -I reviewed and agree with nursing and triage notes Were old charts reviewed (outside hosp., previous admission, EMS record, old EKG, old radiological studies, urgent care reports/EKG's, alf records)? Report findings @ -I reviewed previous EKGs with today's EKG and there was no changes noted. I also compared lab work with previous lab work and again no abnormalities were noted. Differential Diagnosis (chest pain, altered mental status, abdominal pain women, abdominal pain men, vaginal bleeding, weakness, fever, dyspnea, syncope, headache, dizziness, GI bleed, back pain, seizure, CVA, palpatations, mental health, musculoskeletal)? @ -Differential Palpitations Ventricular arrhythmias, atrial arrhythmias, myocardial infarction, anemia, th yrotoxicosis, electrolyte imbalance, hypokalemia, pulmonary embolism, pulmonary disease, drugs, alcohol, anxiety, stress.... This is not meant to be an all-inclusive list. EKG interpreted by me (3pts min.). @ -As above X-rays interpreted by me (1pt min.). @ -Chest x-ray showed no acute abnormality. CT interpreted by me (1pt min.). @ -None done U/S interpreted by me (1pt. min.). @ -None done What testing was considered but not performed or refused? (CT, X-rays, U/S, labs)? Why? @ -None What meds were considered but not given or refused? Why? @ -None Did you discuss the management of the patient with other professionals (professionals i.e. DrBette, PA, HEATER OPERATOR, lab, RT, psych nurse, social work instructor, jingle writer, teacher, helicopter officer, bilingual case manager)? Give summary @ -No Was smoking cessation discussed for >3mins.? @ -No Was critical care preformed (if so, how long)? @ -No Were there social determinants of health that impacted care today? How? (Homelessness, low income, unemployed, alcoholism, drug addiction, transportation, low edu. Level, literacy, decrease access to med. care, [facility], rehab)? @ -No Was there de-escalation of care discussed even if they declined (Discuss DNR or withdrawal of care, Hospice)? DNR status @ -No What co-morbidities impacted this encounter? (DM, HTN, Smoking, COPD, CAD, Cancer, CVA, ARF, Chemo, Hep., AIDS, mental health diagnosis, sleep apnea, morbid obesity)? @ -None Was patient admitted / discharged? Hospital course, mention meds given and route, prescriptions, significant lab abnormalities, going to OR and other pertinent info. @ -Patient had taken metoprolol prior to arrival and had no further palpitations throughout her ED course. Patient already has a cook syrup maker and she is instructed to follow-up with a cook syrup maker. Undiagnosed new problem with uncertain prognosis? @ -No Drug Therapy requiring intensive monitoring for toxicity (Heparin, Nitro, Insu marta, Cardizem)? @ -No Were any procedures done? @ -No Diagnosis/symptom? @ -Palpitations Acute, or Chronic, or Acute on Chronic? @ -Acute Uncomplicated (without systemic symptoms) or Complicated (systemic symptoms)? @ -Complicated Side effects of treatment? @ -No Exacerbation, Progression, or Severe Exacerbation? @ -No Poses a threat to life or bodily function? How? (Chest pain, USA, CT, pneumonia, PE, COPD, DKA, ARF, appy, cholecystitis, CVA, Diverticulitis, Homicidal, Suicidal, threat to staff... and all critical care pts) @ -No - Lab Data Result diagrams: 08/04/23 12:18 08/04/23 12:18 Lab Results 08/04/23 08/04/23 08/04/23 Range/Units 12:18 12:18 12:18 WBC 7.9 (3.8-10.6) k/uL RBC 4.86 (3.80-5.40) m/uL Hgb 14.2 (11.4-16.0) gm/dL Hct 45.6 (34.0-46.0) % MCV 94.0 (80.0-100.0) fL MCH 29.3 (25.0-35.0) pg MCHC 31.2 (31.0-37.0) g/dL RDW 12.5 (11.5-15.5) % Plt Count 273 (150-450) k/uL MPV 8.9 Neutrophils % 51 % Lymphocytes % 38 % Monocytes % 6 % Eosinophils % 2 % Basophils % 1 % Neutrophils # 4.0 (1.3-7.7) k/uL Lymphocytes # 3.0 (1.0-4.8) k/uL Monocytes # 0.5 (0-1.0) k/uL Eosinophils # 0.1 (0-0.7) k/uL Basophils # 0.1 (0-0.2) k/uL Sodium 138 (137-145) mmol/L Potassium 3.7 (3.5-5.1) mmol/L Chloride 104 (98-107) mmol/L Carbon Dioxide 23 (22-30) mmol/L Anion Gap 11 mmol/L BUN 11 (7-17) mg/dL Creatinine 0.61 (0.52-1.04) mg/dL Est GFR (CKD-EPI)AfAm >90 (>60 ml/min/1.73 sqM) Est GFR (CKD-EPI)NonAf >90 (>60 ml/min/1.73 sqM) Glucose 106 H (74-99) mg/dL Calcium 9.2 (8.4-10.2) mg/dL Magnesium 1.9 (1.6-2.3) mg/dL Total Bilirubin 0.7 (0.2-1.3) mg/dL AST 21 (14-36) U/L ALT 15 (4-34) U/L Alkaline Phosphatase 47 (38-126) U/L Troponin I <0.012 (0.000-0.034) ng/mL Total Protein 7.3 (6.3-8.2) g/dL Albumin 4.5 (3.5-5.0) g/dL Urine HCG, Qual (Not Detectd) Urine Opiates Screen (NotDetected) Ur Oxycodone Screen (NotDetected) Urine Methadone Screen (NotDetected) Ur Barbiturates Screen (NotDetected) U Tricyclic Antidepress (NotDetected) Ur Phencyclidine Scrn (NotDetected) Ur Amphetamines Screen (NotDetected) U Methamphetamines Scrn (NotDetected) U Benzodiazepines Scrn (NotDetected) Urine Cocaine Screen (NotDetected) U Marijuana (THC) Screen (NotDetected) 08/04/23 08/04/23 Range/Units 12:39 12:41 WBC (3.8-10.6) k/uL RBC (3.80-5.40) m/uL Hgb (11.4-16.0) gm/dL Hct (34.0-46.0) % MCV (80.0-100.0) fL MCH (25.0-35.0) pg MCHC (31.0-37.0) g/dL RDW (11.5-15.5) % Plt Count (150-450) k/uL MPV Neutrophils % % Lymphocytes % % Monocytes % % Eosinophils % % Basophils % % Neutrophils # (1.3-7.7) k/uL Lymphocytes # (1.0-4.8) k/uL Monocytes # (0-1.0) k/uL Eosinophils # (0-0.7) k/uL Basophils # (0-0.2) k/uL Sodium (137-145) mmol/L Potassium (3.5-5.1) mmol/L Chloride (98-107) mmol/L Carbon Dioxide (22-30) mmol/L Anion Gap mmol/L BUN (7-17) mg/dL Creatinine (0.52-1.04) mg/dL Est GFR (CKD-EPI)AfAm (>60 ml/min/1.73 sqM) Est GFR (CKD-EPI)NonAf (>60 ml/min/1.73 sqM) Glucose (74-99) mg/dL Calcium (8.4-10.2) mg/dL Magnesium (1.6-2.3) mg/dL Total Bilirubin (0.2-1.3) mg/dL AST (14-36) U/L ALT (4-34) U/L Alkaline Phosphatase (38-126) U/L Troponin I (0.000-0.034) ng/mL Total Protein (6.3-8.2) g/dL Albumin (3.5-5.0) g/dL Urine HCG, Qual Not Detected (Not Detectd) Urine Opiates Screen Not Detected (NotDetected) Ur Oxycodone Screen Not Detected (NotDetected) Urine Methadone Screen Not Detected (NotDetected) Ur Barbiturates Screen Not Detected (NotDetected) U Tricyclic Antidepress Not Detected (NotDetected) Ur Phencyclidine Scrn Not Detected (NotDetected) Ur Amphetamines Screen Not Detected (NotDetected) U Methamphetamines Scrn Not Detected (NotDetected) U Benzodiazepines Scrn Not Detected (NotDetected) Urine Cocaine Screen Not Detected (NotDetected) U Marijuana (THC) Screen Not Detected (NotDetected) Disposition Clinical Impression: Palpitations Disposition: HOME SELF-CARE Condition: Good Instructions (If sedation given, give patient instructions): Heart Palpitations (ED) Additional Instructions: Patient should follow-up with cardiology. Is patient prescribed a controlled substance at d/c from ED?: No Referrals: None,Stated [REFERRING] - 1-2 days Time of Disposition: 14:12
[2023-08-04 12:35] LABS: ALT 15 U/L (4-34); AST 21 U/L (14-36); African American GFR (CKD) >90 (>60 ml/min/1.73 sqM); Albumin 4.5 g/dL (3.5-5.0); Alkaline Phosphatase 47 U/L (38-126); Anion Gap 11 mmol/L; Blood Urea Nitrogen 11 mg/dL (7-17); Calcium 9.2 mg/dL (8.4-10.2); Carbon Dioxide 23 mmol/L (22-30); Chloride 104 mmol/L (98-107); Glucose 106 mg/dL (74-99); Magnesium 1.9 mg/dL (1.6-2.3); Non-African American GFR(CKD) >90 (>60 ml/min/1.73 sqM); Potassium 3.7 mmol/L (3.5-5.1); Sodium 138 mmol/L (137-145); Total Bilirubin 0.7 mg/dL (0.2-1.3); Total Protein 7.3 g/dL (6.3-8.2)
[2023-08-04 13:55] LABS: Amphetamine Screen,Urine Not Detected (NotDetected); Barbiturate Screen,Urine Not Detected (NotDetected); Benzodiazepines Screen,Urine Not Detected (NotDetected); Cocaine Screen,Urine Not Detected (NotDetected); Methadone Screen, Urine Not Detected (NotDetected); Opiate Screen,Urine Not Detected (NotDetected); Oxycodone Screen, Urine Not Detected (NotDetected); Phencyclidine Screen,Urine Not Detected (NotDetected); Tricyclic Antidepressant,Urine Not Detected (NotDetected); Urn Cannabinoid Scrn Not Detected (NotDetected)
--- NOTE | 2023-08-04 14:23 | XR ---
EXAMINATION TYPE: XR chest 2V DATE OF EXAM: 08/04/2023 COMPARISON: 06/13/2022 HISTORY: 33-year-old female dysrhythmia, palpitations TECHNIQUE: PA and lateral views FINDINGS: The cardiomediastinal silhouette, aorta, and pulmonary vasculature are within normal limits. Lungs an d pleural spaces are clear. IMPRESSION: No acute cardiopulmonary process.
[2023-08-04 15:24] VITALS: BP 108/67; PULSE 61; RESP 18; TEMP 98.1
== END 2023-08-04 15:18 | disposition home or self-care (01) ==
LOC: EC 11:56
DX: R00.2 Palpitations (principal)
CPT/HCPCS: 36415; 71046; 80053; 80306; 81025; 83735; 84484; 85025; 93005; 99285

== ENCOUNTER 2023-12-09 05:41 | Emergency (ER) | payer BC ==
[2023-12-09] MEDS: SODIUM CHLORIDE 0.9% 1,000 ML IV STA (06:29)
[2023-12-09] MEDS: KETOROLAC 15 MG/ML 1 ML VIAL IVP STA (06:35)
[2023-12-09] MEDS: ONDANSETRON 4 MG/2 ML VIAL IVP STA (06:36)
[2023-12-09 06:47] LABS: Basophils % (A) 0 %; Eosinophils # (A) 0.2 k/uL (0-0.7); Eosinophils % (A) 1 %; HCT 39.7 % (34.0-46.0); HGB 13.1 gm/dL (11.4-16.0); Lymphocytes # (A) 1.1 k/uL (1.0-4.8); Lymphocytes % (A) 8 %; MCH 30.6 pg (25.0-35.0); MCHC 33.1 g/dL (31.0-37.0); MCV 92.5 fL (80.0-100.0); Mean Platelet Volume 9.2; Monocytes % (A) 7 %; Neutrophils % (A) 84 %; Platelet Count 196 k/uL (150-450); RBC 4.29 m/uL (3.80-5.40); WBC 14.4 k/uL (3.8-10.6)
--- NOTE | 2023-12-09 06:47 | ED ---
Female Urogenital HPI - General Chief complaint: Urogenital Stated complaint: UTI/Abd Pain Time Seen by Provider: 12/09/23 05:59 Source: patient, RN notes reviewed Mode of arrival: ambulatory Limitations: no limitations - History of Present Illness Initial comments: This is a 33-year-old female who presents to the emergency department for urinary symptoms. States that she woke up this morning with urinary urgency. She used the restroom several times and afterwards was only able to go very small amounts at a time. She tried taking leftover cranberry pills and AZO without improvement in symptoms. She then started to notice blood in her urine and had suprapubic discomfort. Denies any pain in her back. States that this feels the same as the last time she had a kidney stone. Denies any fevers or chills. - Related Data Home Medications Medication Instructions Recorded Confirmed Ibuprofen [Motrin] 400 mg PO ONCE 12/10/22 12/10/22 Previous Rx's Medication Instructions Recorded Ibuprofen [Motrin] 600 mg PO Q6HR PRN #40 tab 12/12/22 Cefpodoxime Proxetil [Vantin] 200 mg PO Q12HR 7 Days #14 tab 12/09/23 Ondansetron Odt [Zofran Odt] 4 mg PO Q8HR PRN #15 tab 12/09/23 Phenazopyridine [Pyridium] 200 mg PO TID PRN #9 tablet 12/09/23 Allergies Allergy/AdvReac Type Severity Reaction Status Date / Time No Known Allergies Allergy Verified 12/09/23 05:47 Review of Systems ROS Statement: Those systems with pertinent positive or pertinent negative responses have been documented in the HPI. ROS Other: All systems not noted in ROS Statement are negative. Past Medical History Past Medical History: No Reported History Additional Past Medical History / Comment(s): kidney stones without surgery, [place] hycardia History of Any Multi-Drug Resistant Organisms: None Reported Past Surgical History: No Surgical Hx Reported Past Psychological History: No Psychological Hx Reported Smoking Status: Never smoker Past Alcohol Use History: Occasional Past Drug Use History: None Reported General Exam Limitations: no limitations General appearance: alert, in no apparent distress Head exam: Present: atraumatic, normocephalic, normal inspection Respiratory exam: Present: normal lung sounds bilaterally. Absent: respiratory distress, wheezes, rales, rhonchi, stridor Cardiovascular Exam: Present: regular rate, normal rhythm, normal heart sounds. Absent: systolic murmur, diastolic murmur, rubs, gallop, clicks GI/Abdominal exam: Present: soft, tenderness (Lower abdomen), normal bowel sounds. Absent: distended Back exam: Absent: CVA tenderness (R), CVA tenderness (L) Neurological exam: Present: alert, oriented X3, CN II-XII intact Psychiatric exam: Present: normal affect, normal mood Skin exam: Present: warm, dry, intact, normal color. Absent: rash Course Vital Signs 12/09/23 05:42 Temperature 99.6 F Pulse Rate 110 H Respiratory 18 Rate Blood Pressure 127/81 O2 Sat by Pulse 98 Oximetry Medical Decision Making - Medical Decision Making This is a 33-year-old female who presents to the emergency department for urinary symptoms. Was pt. sent in by a medical professional or institution? @ -No Did you speak to anyone other than the patient for history? @ -No Did you review nursing and triage notes? @ -Yes, and I agree, it is accurate with regards to the patient's symptoms. Were old charts reviewed? @ -No Differential Diagnosis? @ -Differential Urinary Symptoms: UTI, STI, ureter stone, this is not meant to be an all-inclusive list. EKG interpreted by me (3pts min.)? @ -Not obtained X-rays interpreted by me (1pt min.)? @ -Not obtained CT interpreted by me (1pt min.)? @ -CT scan of the abdomen and pelvis obtained. My interpretation identifies no evidence of a ureteral calculus. U/S interpreted by me (1pt. min.)? @ -Not obtained What testing was considered but not performed? (CT, X-rays, U/S, labs)? Why? @ -None What meds were considered but not given? Why? @ -None Did you discuss the management of the patient with other professionals? @ -No Did you reconcile home meds? @ -No Was smoking cessation discussed for >3mins.? @ -No Was critical care preformed (if so, how long)? @ -No Were there social determinants of health that impacted care today? How? (Homelessness, low income, unemployed, alcoholism, drug addiction, transportation, low edu. Level, literacy, decrease access to med. care, skilled nursing, rehab)? @ -No Was there de-escalation of care discussed even if they declined? (Discuss DNR or withdrawal of care, Hospice)? @ -No What co-morbidities impacted this encounter? (DM, HTN, Smoking, COPD, CAD, Cancer, CVA, Hep., AIDS, mental health diagnosis, sleep apnea, morbid obesity)? @ -None Was patient admitted / discharged? @ -Discharged. Lab work demonstrates leukocytosis and was otherwise unremarkable. Urinalysis consistent with infection and urine was sent for culture. She was treated with 1 L bolus of IV fluids, Toradol, and Zofran. 1 g of Rocephin administered as well for the UTI. CT scan of the abdomen and pelvis demonstrates nonobstructing nephrolithiasis without any acute process. Advised that given the location of these stones they are not causing problems at this point, but may eventually become obstructing. Symptoms at this point related to the UTI. Prescription for cefpodoxime, Pyridium, and Zofran provided with dosing instructions reviewed. Patient discharged home in stable condition. Case discussed with ED attending Dr. Coronel. Return precautions reviewed in depth, the patient is instructed to return to the emergency department with any new, worsening, or concerning symptoms. Patient verbalized understanding. Undiagnosed new problem with uncertain prognosis? @ -None Drug Therapy requiring intensive monitoring for toxicity (Heparin, Nitro, Insulin, Cardizem)? @ -None Were any procedures done? @ -None Diagnosis/symptom? @ -UTI Acute, or Chronic, or Acute on Chronic? @ -Acute Uncomplicated (without systemic symptoms) or Complicated (systemic symptoms)? @ -Uncomplicated Side effects of treatment? @ -None Exacerbation, Progression, or Severe Exacerbation] @ -Not applicable Poses a threat to life or bodily function? @ -No - Lab Data Result diagrams: 12/09/23 06:12 12/09/23 06:12 Lab Results 12/09/23 12/09/23 12/09/23 Range/Units 06:12 06:12 06:12 WBC 14.4 H (3.8-10.6) k/uL RBC 4.29 (3.80-5.40) m/uL Hgb 13.1 (11.4-16.0) gm/dL Hct 39.7 (34.0-46.0) % MCV 92.5 (80.0-100.0) fL MCH 30.6 (25.0-35.0) pg MCHC 33.1 (31.0-37.0) g/dL RDW 13.0 (11.5-15.5) % Plt Count 196 (150-450) k/uL MPV 9.2 Neutrophils % 84 % Lymphocytes % 8 % Monocytes % 7 % Eosinophils % 1 % Basophils % 0 % Neutrophils # 12.0 H (1.3-7.7) k/uL Lymphocytes # 1.1 (1.0-4.8) k/uL Monocytes # 1.0 (0-1.0) k/uL Eosinophils # 0.2 (0-0.7) k/uL Basophils # 0.0 (0-0.2) k/uL Sodium (137-145) mmol/L Potassium (3.5-5.1) mmol/L Chloride (98-107) mmol/L Carbon Dioxide (22-30) mmol/L Anion Gap mmol/L BUN (7-17) mg/dL Creatinine (0.52-1.04) mg/dL Est GFR (CKD-EPI)AfAm (>60 ml/min/1.73 sqM) Est GFR (CKD-EPI)NonAf (>60 ml/min/1.73 sqM) Glucose (74-99) mg/dL Plasma Lactic Acid Delroy (0.7-2.0) mmol/L Calcium (8.4-10.2) mg/dL Total Bilirubin (0.2-1.3) mg/dL AST (14-36) U/L ALT (4-34) U/L Alkaline Phosphatase (38-126) U/L Total Protein (6.3-8.2) g/dL Albumin (3.5-5.0) g/dL Urine Color Dark Brown Urine Appearance Turbid H (Clear) Urine pH 6.0 (5.0-8.0) Ur Specific [place] 1.017 (1.001-1.035) Urine Protein 2+ H (Negative) Urine Glucose (UA) Negative (Negative) Urine Ketones Negative (Negative) Urine Blood Large H (Negative) Urine Nitrite Positive H (Negative) Urine Bilirubin 1+ H (Negative) Urine Urobilinogen 3.0 (<2.0) mg/dL Ur Leukocyte Esterase Large H (Negative) Urine RBC >182 H (0-5) /hpf Urine WBC >182 H (0-5) /hpf Urine WBC Clumps Rare H (None) /hpf Calcium Oxalate Crystal Occasional H (None) /hpf Urine Bacteria Many H (None) /hpf Urine Mucus Rare H (None) /hpf Urine HCG, Qual Not Detected (Not Detectd) 12/09/23 12/09/23 Range/Units 06:12 06:12 WBC (3.8-10.6) k/uL RBC (3.80-5.40) m/uL Hgb (11.4-16.0) gm/dL Hct (34.0-46.0) % MCV (80.0-100.0) fL MCH (25.0-35.0) pg MCHC (31.0-37.0) g/dL RDW (11.5-15.5) % Plt Count (150-450) k/uL MPV Neutrophils % % Lymphocytes % % Monocytes % % Eosinophils % % Basophils % % Neutrophils # (1.3-7.7) k/uL Lymphocytes # (1.0-4.8) k/uL Monocytes # (0-1.0) k/uL Eosinophils # (0-0.7) k/uL Basophils # (0-0.2) k/uL Sodium 136 L (137-145) mmol/L Potassium 3.9 (3.5-5.1) mmol/L Chloride 104 (98-107) mmol/L Carbon Dioxide 27 (22-30) mmol/L Anion Gap 5 mmol/L BUN 7 (7-17) mg/dL Creatinine 0.64 (0.52-1.04) mg/dL Est GFR (CKD-EPI)AfAm >90 (>60 ml/min/1.73 sqM) Est GFR (CKD-EPI)NonAf >90 (>60 ml/min/1.73 sqM) Glucose 131 H (74-99) mg/dL Plasma Lactic Acid Delroy 1.2 (0.7-2.0) mmol/L Calcium 9.0 (8.4-10.2) mg/dL Total Bilirubin 0.7 (0.2-1.3) mg/dL AST 24 (14-36) U/L ALT 15 (4-34) U/L Alkaline Phosphatase 31 L (38-126) U/L Total Protein 6.1 L (6.3-8.2) g/dL Albumin 3.8 (3.5-5.0) g/dL Urine Color Urine Appearance (Clear) Urine pH (5.0-8.0) Ur Specific [place] (1.001-1.035) Urine Protein (Negative) Urine Glucose (UA) (Negative) Urine Ketones (Negative) Urine Blood (Negative) Urine Nitrite (Negative) Urine Bilirubin (Negative) Urine Urobilinogen (<2.0) mg/dL Ur Leukocyte Esterase (Negative) Urine RBC (0-5) /hpf Urine WBC (0-5) /hpf Urine WBC Clumps (None) /hpf Calcium Oxalate Crystal (None) /hpf Urine Bacteria (None) /hpf Urine Mucus (None) /hpf Urine HCG, Qual (Not Detectd) - Radiology Data Radiology results: report reviewed, image reviewed Disposition Clinical Impression: Urinary tract infection Disposition: HOME SELF-CARE Instructions (If sedation given, give patient instructions): Urinary Tract Infection in Women (ED) Additional Instructions: Return to the emergency department with any new, worsening, or concerning symptoms. Take the antibiotic as prescribed for 7 days. You can take the Pyridium up to 3 times daily to help with urinary symptoms. Take the Zofran up to every 8 hours as needed for nausea and vomiting. Follow up with your primary care provider in 1-2 days. Prescriptions: Phenazopyridine [Pyridium] 200 mg PO TID PRN #9 tablet PRN Reason: Pain Cefpodoxime Proxetil [Vantin] 200 mg PO Q12HR 7 Days #14 tab Ondansetron Odt [Zofran Odt] 4 mg PO Q8HR PRN #15 tab PRN Reason: Nausea And Vomiting Is patient prescribed a controlled substance at d/c from ED?: No Referrals: Gabriella Buenrostro MD [Primary Care Provider] - 1-2 days Time of Disposition: 08:17
[2023-12-09 06:53] LABS: ALT 15 U/L (4-34); AST 24 U/L (14-36); African American GFR (CKD) >90 (>60 ml/min/1.73 sqM); Albumin 3.8 g/dL (3.5-5.0); Alkaline Phosphatase 31 U/L (38-126); Anion Gap 5 mmol/L; Blood Urea Nitrogen 7 mg/dL (7-17); Carbon Dioxide 27 mmol/L (22-30); Chloride 104 mmol/L (98-107); Glucose 131 mg/dL (74-99); Non-African American GFR(CKD) >90 (>60 ml/min/1.73 sqM); Potassium 3.9 mmol/L (3.5-5.1); Sodium 136 mmol/L (137-145); Total Bilirubin 0.7 mg/dL (0.2-1.3); Total Protein 6.1 g/dL (6.3-8.2)
[2023-12-09 07:01] LABS: Appearance,Urine Turbid (Clear); Bacteria,Urine Many /hpf; Bilirubin,Urine 1+ (Negative); Blood,Urine Large (Negative); Calcium Oxalate Crystals,Urine Occasional /hpf; Color,Urine Dark Brown; Glucose,Urine (UA) Negative (Negative); Ketones,Urine Negative (Negative); Leukocyte Esterase,Urine Large (Negative); Mucus,Urine Rare /hpf; Nitrite,Urine Positive (Negative); Protein,Urine 2+ (Negative); RBC,Urine >182 /hpf (0-5); Specific Gravity,Urine 1.017 (1.001-1.035); WBC,Urine >182 /hpf (0-5)
[2023-12-09] MEDS: cefTRIAXone IN SWFI 1,000 MG/10 ML SYRINGE IVP STA (07:40)
[2023-12-09] MEDS: PHENAZOPYRIDINE 200 MG TAB PO STA (07:45)
--- NOTE | 2023-12-09 08:11 | CT ---
EXAMINATION TYPE: CT abdomen pelvis wo con DATE OF EXAM: 12/09/2023 COMPARISON: 06/21/2017 HISTORY: Hematuria Examination of the solid and hollow viscera is limited given the lack of contrast. FINDINGS: LUNG BASES: No evidence for nodule. No evidence for infiltrate. LIVER/GB: The gallbladder is unremarkable. No space-occupying hepatic lesion. PANCREAS: No pancreatic mass identified. No inflammatory process seen. SPLEEN: No evidence for splenomegaly. No intrasplenic lesions seen. ADRENALS: No adrenal nodules identified. No evidence for thickening. KIDNEYS: No evidence for renal mass. 3 mm calculus right kidney at its lower pole. 2.5 mm calculus mi d pole left kidney.. No hydronephrosis. BOWEL: Appendix has a normal appearance. No evidence of bowel obstruction. No inflammatory process. Lymph nodes: No evidence for adenopathy greater than 1 cm. Abdominal aorta: Atheromatous changes seen. No evidence for aneurysm. Genital organs: No significant abnormality. Free fluid noted within the cul-de-sac measuring 4.4 x 1. 9 cm. Other: No significant abnormality. IMPRESSION: 1. Nonobstructing nephrolithiasis. 2. Free fluid within the cul-de-sac. No ovarian or adnexal mass identified.
[2023-12-09] MEDS: ACET/COD 300 MG/30 MG STARTER PACK 6 TAB BTL PO STA (08:34)
[2023-12-09 08:39] VITALS: BP 108/72; PULSE 77; RESP 16; TEMP 98.1
== END 2023-12-09 08:40 | disposition home or self-care (01) ==
LOC: EC 05:41
DX: N39.0 Urinary tract infection, site not specified (principal)
CPT/HCPCS: 36415; 74176; 80053; 81001; 81025; 83605; 85025; 87077; 87086; 87186; 96361; 96374; 96375; 99284